=== PATIENT | male | born 1985 | race Caucasian/White ===

== ENCOUNTER → 2021-04-15 12:45 | Outpatient (BNVA) | payer OTHER, SELFPAY | PROVIDERS: Family Provider Family Medicine; PCP Family Medicine; Visit Provider Nurse Practitioner Family | DX: Z00.00 Encounter for general adult medical examination without abnormal findings (principal); R53.83 Other fatigue; K21.9 Gastro-esophageal reflux disease without esophagitis; R11.2 Nausea with vomiting, unspecified; F17.200 Nicotine dependence, unspecified, uncomplicated | CPT/HCPCS: 80053; 80061; 84443; 85025 ==

== ENCOUNTER 2022-12-15 17:07 | Emergency (ER) | payer OTHER, SELFPAY ==
[2022-12-15 17:22] VITALS: BP 139/99; PULSE 74; RESP 16; TEMP 36.3; O2SAT 95; BMI 37.2
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
--- NOTE | 2022-12-24 10:36 | DCPLANNER ---
sheet manager called patient due to no primary care physician - no answer at this time
== END 2022-12-15 19:58 | disposition home or self-care (01) ==
PROVIDERS: Emergency Provider Nurse Practitioner Family
DX: S29.012A Strain of muscle and tendon of back wall of thorax, initial encounter (principal); S16.1XXA Strain of muscle, fascia and tendon at neck level, initial encounter; V49.40XA Driver injured in collision with unspecified motor vehicles in traffic accident, initial encounter
CPT/HCPCS: 72040; 72072; 72100; 99283

== ENCOUNTER 2023-06-15 12:00 | Outpatient (CLI) | payer OTHER, SELFPAY | END 2023-06-15 12:01 | disposition home or self-care (01) | LOC: SLEEP 06-16 13:56 | PROVIDERS: Visit Provider Internal Medicine Pulmonary Disease | DX: G47.33 Obstructive sleep apnea (adult) (pediatric) (principal) | CPT/HCPCS: G0399 ==

== ENCOUNTER → 2023-06-16 11:34 | Outpatient (BNVA) | payer OTHER, SELFPAY | PROVIDERS: Visit Provider Student in an Organized Health Care Education/Training Program | DX: G56.03 Carpal tunnel syndrome, bilateral upper limbs | CPT/HCPCS: 73110 ==

== ENCOUNTER 2023-08-12 08:42 | Day surgery (SDC) | payer OTHER, SELFPAY ==
[2023-08-12] VITALS (7 sets, daily range): BP systolic 131–155; BP diastolic 91–117; PULSE 74–88; RESP 16–18; TEMP 36.1–36.2; O2SAT 95–97; BMI 37.2
[2023-08-12] MEDS: sodium chloride 0.9% 1,000 ML 30 ML IV (09:14)
[2023-08-12] MEDS: acetaminophen 1,000 MG/100 ML PIGGYBACK 400 MG IV (09:18)
[2023-08-12] MEDS: ketorolac 30 mg/mL INJ IVP (09:30)
--- NOTE | 2023-08-12 10:53 | ANES.PREANE2 ---
Pre-Anesthetic Assessment Height/Weight: Height 1.73 m Weight 111.13 kg Temp Pulse Resp BP Pulse Ox O2 Del Method 97.0 F L 74 18 145/117 97 Room Air 08/12/23 09:06 08/12/23 09:06 08/12/23 09:06 08/12/23 09:06 08/12/23 09:06 08/12/23 09:33 Operation Date: 08/12/23 10:20 Proposed Procedures p Right Carpal Tunnel Release(Right) - Gary Johnson, Familial anesthetic complications: None Was Beta Wen taken within 24 hours: N/A Was Clonidine taken within 24 hours: N/A Last intake: Intake Last Liquid Date 08/11/23 Last Liquid Time 22:00 Last Solid Date 08/11/23 Last Solid Time 21:00 Social No alcohol and No tobacco Exam alert, oriented x 3, clear to auscultation bilaterally and regular rate & rhythm Airway Mallampati: Class IV Dentition: chipped Pulmonary Sleep Apnea GI Gastroesophageal Reflux Disease Neuropsych Anxiety and Depression hyperreflexia (i.e. exagerated orienting response) Anesthetic Plan ASA status: 2 Anesthesia: MAC Risk of > 500 ml blood loss (7ml/kg in children): No Medications/Allergies Home Medications Medication Instructions Recorded Confirmed Last Taken Type clonazepam 1 mg tablet 1 mg PO TID 04/15/21 08/11/23 08/12/23 07:30 History melatonin 10 mg capsule 10 mg PO DAILY 04/15/21 08/11/23 08/11/23 History omeprazole 20 mg capsule,delayed 20 mg PO DAILY 04/15/21 08/11/23 08/12/23 07:30 History release desvenlafaxine succinate 25 mg 25 mg PO DAILY 04/29/23 08/11/23 08/12/23 07:30 History tablet,extended release 24 hr (Pristiq) Auto titrating CPAP with supplies #1 ea 06/25/23 07/14/23 Unknown Rx coenzyme Q10 100 mg capsule 100 mg PO DAILY 08/11/23 08/11/23 08/11/23 History (CoQ-10) magnesium 1 tab PO DAILY 08/11/23 08/11/23 08/11/23 History Allergies Allergy/AdvReac Type Severity Reaction Status Date / Time No Known Allergies Allergy Verified 08/12/23 09:02 Current Medications Generic Name Dose Route Start Last Admin Trade Name Freq PRN Reason Stop Dose Admin Sodium Chloride 1,000 mls @ 30 mls/hr 08/12/23 09:00 08/12/23 09:14 Sodium Chloride 0.9% IV 08/13/23 08:59 30 mls/hr .Q24H SAURABH Administration PFSH Anesthesia Medical History GERD (gastroesophageal reflux disease) Social History Smoking and tobacco/nicotine status: never used tobacco/nicotine Alcohol intake: never Substance/Drug Use: never Data Anesthesia Cardiac Studies: No Data to Display
--- NOTE | 2023-08-12 11:15 | W.PM.OPSUD ---
Surgery/Procedure H&P Update DATE OF PROCEDURE: August 12, 2023 DATE H&P PERFORMED: 07/14/23 H&P UPDATE INFORMATION: I have reviewed H&P completed within last 30 days, I have examined patient prior to procedure and No changes to prior documentation PREOP DIAGNOSIS: Right carpal tunnel syndrome PRIMARY INDICATION FOR PROCEDURE: Right carpal tunnel syndrome PLANNED PROCEDURE: Operation Date: 08/12/23 10:20 Proposed Procedures p Right Carpal Tunnel Release(Right) - Gary Johnson DO
[2023-08-12] MEDS: ceFAZolin 2,000 MG in sodium chloride 0.9% (plus) 50 ML 100 MG IV (12:13)
[2023-08-12] MEDS: lidocaine-epi 2% 20 mL INJ 5 ML INJECTION (12:40)
[2023-08-12] MEDS: ROPivacaine 0.5% SDV 30 mL 25 MG INJECTION (12:40)
--- NOTE | 2023-08-12 12:43 | PM.OP ---
Operative Report Date of procedure: August 12, 2023 Surgeon: Gary Johnson DO Chemical Engineering Technician: Milton Johnson PA-C: PA was necessary for assistance in this case with retraction and protection of neurovascular structures assistance with hand positioning during execution of the procedure as well as to assist with wound closure and dressing application. Procedure: Preoperative diagnosis: Right carpal tunnel syndrome: Post-op diagnosis: Same Procedure done: 1.?Right carpal tunnel?release Surgeon: Gary Johnson DO Anesthesia: MAC (Local) Estimated blood loss: 5 mL Tourniquet time 6 minutes IV fluids: See anesthesia?record Complications: None Findings: See operative?report narrative Condition: stable Disposition: same day Brief History: Patient is a pleasant 38 year-old male with?right carpal tunnel syndrome.? Patient has been worked up in the outpatient setting findings and physical examination consistent with this.? Patient nerve conduction studies consistent with carpal tunnel syndrome.? We detailed out patient's?risk benefits complication alternatives with surgical and nonsurgical treatment options. Through shared decision making, patient agrees to proceed with surgical intervention of the carpal tunnel?release .? Patient understands and agrees with current plan.? All questions answered.? Patient elects to proceed with surgical intervention with carpal tunnel?release. Procedure: Patient seen and evaluated in the preoperative holding area.? Consent was?reviewed and signed with patient.? Correct extremity was marked.? Patient was seen evaluated by the anesthesia department once cleared for surgery was brought back to the operative suite.? Patient was kept on [facility] in supine position all bony prominences were well-padded patient properly secured to the bed.??Right upper extremity was then placed onto an armboard.? A nonsterile tourniquet was applied to the?RIght upper arm.? Patient underwent anesthesia per the anesthesia department.? Patient's?Right upper extremity was then prepped and draped in standard orthopedic fashion.? Final timeout performed.? Patient?received appropriate preoperative antibiotics. Under sterile aseptic technique patient?received local anesthesia over the preplanned carpal tunnel incision site. Esmarch was used to exsanguinate the?Right upper extremity and tourniquet was insufflated to 250 mmHg. A standard mini open?Right carpal tunnel incision was made.? Starting distally at Etienne's cardinal line in line with the fourth?ray extending proximally distal to the wrist crease centered over the carpal tunnel.? Sharp scalpel incision was made through skin and subcutaneous tissue.? Self-retaining?retractor was placed and the palmar fascia was identified.? This was then split longitudinally and direct visualization of the transverse carpal ligament was then made.? I then utilizing scalpel feathered through the transverse carpal ligament until I entered the floor of the transverse carpal tunnel ligament into the carpal tunnel.? Next I switched to dissection scissors and completed my?release of the transverse carpal ligament distally with care to protect the?recurrent motor branch.? I completely?released into the palmar fat and until no entrapment was noted distally.? Care was made to protect the superficial palmar arch during my distal dissection.?? Next I utilized a nasal speculum placed on top of the transverse carpal ligament and utilize this to?retract the subcutaneous fat and tissue and under direct loupe magnification was able to identify the transverse carpal ligament.? Next I then placed a [place] underneath the transverse carpal tunnel ligament to protect the contents of the carpal tunnel and subsequently utilizing dissection scissors under loupe magnification completely?released the transverse carpal ligament proximally into the median antebrachial fascia.? Care was made to protect the palmar cutaneous branch by keeping my scissors curved ulnarly.? Once completely?released, I then placed my [place] and had appropriate decompression of the carpal tunnel proximally as well as distally.? I then inspected the contents of the carpal tunnel which showed an hourglass shape of the median nerve showing its compression.? No masses were noted.? Tendons appeared healthy.? Wound was then thoroughly irrigated.? Tourniquet deflated.? Hemostasis satisfactory with bipolar electrocautery.? I then closed the incision with interrupted nylon stitches.? Xeroform 4 x 4's and a bulky soft dressing was applied.? Patient was then awakened from anesthesia and taken to PACU in stable condition.? Patient tolerated procedure without complications. Disposition: Patient taken to PACU in stable condition?recovering well.? Dressing clean dry and intact.? Patient will?receive appropriate discharge instructions as well as pain medication postoperatively.? Patient to follow-up with me in the office in 2 weeks.? They understand they may be weightbearing as tolerated to the?right hand.? Patient should keep incision clean dry and intact.? Patient understands if any questions or concerns may contact the office.
--- NOTE | 2023-08-12 12:55 | P.BOP_ITS ---
Date of Procedure: [August 12, 2023] Surgeon: [Dr. Alex HOOK] Event Marketing Specialist(s): [Milton Johnson physician associate] Procedure(s) performed: [Right carpal tunnel release] Findings of the procedure(s): [Right carpal tunnel syndrome] Estimated blood loss: [5 ml] Specimen(s) removed: [N/A] Post-operative diagnosis: [Right carpal tunnel syndrome]
--- NOTE | 2023-08-12 12:56 | P.PCN_ITS ---
PACU note Narrative: Patient is a 38-year-old male that just underwent right carpal tunnel release. Patient transferred to PACU in stable condition. Pain is well controlled. Dressing on hand is dry and in place. Patient's fingers are warm and well- perfused. Patient can wiggle fingers. normal cap refill under 2 seconds. Patient has normal elbow range of motion. Unable to assess sensation due to residual localized anesthetic. Exam: awake Disposition: discharged
--- NOTE | 2023-08-12 14:13 | ANE.PACU2 ---
Inpatient post-anesthesia follow up: Airway intact: Yes Vital signs: Temperature 97.2 F Pulse Rate 84 Respiratory Rate 18 Blood Pressure 155/117 Pulse Oximetry 96 Oxygen Delivery Me thod Room Air Oxygen Flow Rate Fraction of Inspir ed Oxygen Hydration adequate: Yes Nausea and vomiting: No Pain level: 1 Mental status: Baseline
== END 2023-08-12 13:28 | disposition home or self-care (01) ==
PROVIDERS: PCP Family Medicine; Visit Provider Student in an Organized Health Care Education/Training Program
PROC: (CPT 64721; principal; 2023-08-12 10:10)
DX: G56.01 Carpal tunnel syndrome, right upper limb (principal); G47.30 Sleep apnea, unspecified; K21.9 Gastro-esophageal reflux disease without esophagitis
CPT/HCPCS: 64721; J0131; J0690; J1885; J2704; J2795; J3010; J7030

== ENCOUNTER 2023-08-26 09:07 | Day surgery (SDC) | payer OTHER, SELFPAY ==
[2023-08-26 09:23] VITALS: BP 147/113; PULSE 74; RESP 16; TEMP 36.1; O2SAT 95
[2023-08-26 09:24] VITALS: BMI 36.1
[2023-08-26] MEDS: acetaminophen 1,000 MG/100 ML PIGGYBACK 400 MG IV (09:39)
[2023-08-26] MEDS: sodium chloride 0.9% 1,000 ML 30 ML IV (09:42)
[2023-08-26] MEDS: ketorolac 30 mg/mL INJ IVP (09:42)
--- NOTE | 2023-08-26 10:16 | ANES.PAUD2 ---
Pre-Anesthetic Update Pre-Anesthetic Assessment: Date of Surgery/Procedure: 08/26/23 Proposed Procedure: Operation Date: 08/26/23 10:30 Proposed Procedures p Left Carpal Tunnel Release(Left) - Gary Johnson, DO Any changes to Pre-Anesthetic Assessment?: No Last Intake: Intake Last Liquid Date 08/25/23 Last Liquid Time 22:30 Last Solid Date 08/25/23 Last Solid Time 22:30 Vitals: Temperature 96.9 F L 08/26/23 09:23 Temperature Source Temporal Artery S can 08/26/23 09:23 Pulse Rate 74 08/26/23 09:23 Pulse Rhythm Regular 08/26/23 09:24 Respiratory Rate 16 08/26/23 09:23 Blood Pressure 147/113 08/26/23 09:23 Blood Pressure Yamilet n 124 08/26/23 09:23 Pulse Oximetry 95 08/26/23 09:23 Oxygen Delivery Me thod Room Air 08/26/23 09:24 Exam: Pre-Anes Outpt Exam: alert, oriented x 3, clear to auscultation bilaterally and regular rate & rhythm Cardiac Studies: No Data to Display
--- NOTE | 2023-08-26 10:28 | W.PM.OPSFHP ---
Same Day Surgery H&P Indication for Procedure/HPI DATE OF PROCEDURE: August 26, 2023 CHIEF COMPLAINT/INDICATIONFOR SURGICAL PROCEDURE: Left carpal tunnel syndrome PREOP DIAGNOSIS: Left carpal tunnel syndrome PLANNED PROCEDURE: Operation Date: 08/26/23 10:30 Proposed Procedures p Left Carpal Tunnel Release(Left) - Gary Johnson DO Medications/Allergies* Home Medications Medication Instructions Recorded Confirmed Type clonazepam 1 mg tablet 1 mg PO TID 04/15/21 08/25/23 History melatonin 10 mg capsule 10 mg PO DAILY 04/15/21 08/25/23 History omeprazole 20 mg capsule,delayed 20 mg PO DAILY 04/15/21 08/26/23 History release desvenlafaxine succinate 25 mg 25 mg PO DAILY 04/29/23 08/26/23 History tablet,extended release 24 hr (Pristiq) coenzyme Q10 100 mg capsule 100 mg PO DAILY 08/11/23 08/25/23 History (CoQ-10) magnesium 1 tab PO DAILY 08/11/23 08/11/23 History Allergies/Adverse Reactions Allergy/AdvReac Type Severity Reaction Status Date / Time No Known Allergies Allergy Verified 08/12/23 09:02 Current Medications: Generic Name Dose Route Start Last Admin Trade Name Freq PRN Reason Stop Dose Admin Sodium Chloride 1,000 mls @ 30 mls/hr 08/26/23 09:15 08/26/23 09:42 Sodium Chloride 0.9% IV 08/27/23 09:14 30 mls/hr .Q24H SAURABH Administration Pertinent History/Comorbid Conditions* Medical History (Updated 07/18/23 @ 14:53 by Gary Johnson DO) GERD (gastroesophageal reflux disease) Social History Smoking and tobacco/nicotine status: never used tobacco/nicotine Alcohol intake: never Substance/Drug Use: never Pertinent Exam Findings alert, oriented x 3, operative site marked and procedure specific exam findings Examination left upper extremity positive Tinel's positive median nerve compression test to the left wrist consistent with carpal tunnel syndrome Recommendations Surgery/Procedure today Other Plans: Plan to proceed to the OR today with left carpal tunnel release Coding Level of Care Code Acute Code for Dameon Szymanski
[2023-08-26] MEDS: ceFAZolin 2,000 MG in sodium chloride 0.9% (plus) 50 ML 100 MG IV (10:31)
[2023-08-26] MEDS: ROPivacaine 0.5% SDV 30 mL 25 MG INJECTION (11:01)
[2023-08-26] MEDS: lidocaine-epi 2% 20 mL INJ 5 ML INJECTION (11:01)
[2023-08-26 11:14] VITALS: BP 173/96; PULSE 96; RESP 16; TEMP 36.1; O2SAT 97
--- NOTE | 2023-08-26 11:15 | W.PM.BPON ---
Date of Procedure: [August 26, 2023] Surgeon: [Dr. Alex DO] Game Moderator(s): [Milton Johnson PA-C] Procedure(s) performed: [Right carpal tunnel release] Findings of the procedure(s): [Right carpal tunnel syndrome] Estimated blood loss: [5 ml] Specimen(s) removed: [N/A] Post-operative diagnosis: [Right carpal tunnel syndrome]
--- NOTE | 2023-08-26 11:16 | P.PCN_ITS ---
PACU note Narrative: Patient is a 38-year-old male just underwent Left carpal tunnel syndrome. Patient transferred to PACU in stable condition. Pain is well controlled. Dressing on hand is dry and in place. Patient's fingers are warm and well- perfused. Patient can wiggle fingers. normal cap refill under 2 seconds. Patient has normal elbow range of motion. Unable to assess sensation due to residual localized anesthetic. Exam: awake Disposition: discharged
--- NOTE | 2023-08-26 11:20 | P.OP_ITS ---
Operative Report Date of procedure: August 26, 2023 Surgeon: Gary Johnson DO Resident Care Director: Milton Johnson PA-C: PA was necessary for assistance in this case with hand positioning to execute the procedure, retraction and protection of neurovascular structures as well as to assist with wound closure and dressing application. Procedure: Preop Diagnosis: Left Carpal Tunnel Syndrome Post-op diagnosis: Same Procedure done: 1. Left carpal tunnel release Surgeon: Gary Johnson DO Anesthesia: MAC (Local) Estimated blood loss: [ 2]mL Tourniquet time [ 6]minutes IV fluids: See anesthesia record Complications: None Findings: See operative report narrative Condition: stable Disposition: same day Brief History: Patient is a pleasant [ 38 ]year-old [ M ] with left carpal tunnel syndrome. Patient has been worked up in the outpatient setting findings and physical examination consistent with this. Patient nerve conduction studies consistent with carpal tunnel syndrome. We detailed out patient's risk benefits complication alternatives with surgical and nonsurgical treatment options. Through shared decision making, patient agrees to proceed with surgical intervention of the left carpal tunnel release . Patient understands and agrees with current plan. All questions answered. Patient elects to proceed with surgical intervention with carpal tunnel release.Patient previously had a right carpal tunnel release and is doing well pertaining to this. We will remove his stitches while under anesthesia as this is over 2 weeks from his date of surgery. Procedure: Patient seen and evaluated in the preoperative holding area. Consent was reviewed and signed with patient. Correct extremity was marked. Patient was seen evaluated by the anesthesia department once cleared for surgery was brought back to the operative suite. Patient was kept on [facility] in supine position all bony prominences were well-padded patient properly secured to the bed. Left upper extremity was then placed onto an armboard. A nonsterile tourniquet was applied to the left upper arm. Patient underwent anesthesia per the anesthesia department. Patient's left upper extremity was then prepped and draped in standard orthopedic fashion. Final timeout performed. Patient received appropriate preoperative antibiotics. Under sterile aseptic technique patient received local anesthesia over the preplanned carpal tunnel incision site. Esmarch was used to exsanguinate the left upper extremity and tourniquet was insufflated to 250 mmHg. A standard mini open left carpal tunnel incision was made. Starting distally at Etienne's cardinal line in line with the fourth ray extending proximally distal to the wrist crease centered over the carpal tunnel. Sharp scalpel incision was made through skin and subcutaneous tissue. Self-retaining retractor was placed and the palmar fascia was identified. This was then split longitudinally and direct visualization of the transverse carpal ligament was then made. I then utilizing scalpel feathered through the transverse carpal ligament until I entered the floor of the transverse carpal tunnel ligament into the carpal tunnel. Next I switched to dissection scissors and completed my release of the transverse carpal ligament distally with care to protect the recurrent motor branch. I completely released into the palmar fat and until no entrapment was noted distally. Care was made to protect the superficial palmar arch during my distal dissection. Next, nasal speculum placed proximally for retraction of soft tissue on top of the Transverse carpal ligament. Next the contents of the carpal tunnel where protected and and subsequently utilizing dissection scissors under loupe magnification completely released the transverse carpal ligament proximally into the antebrachial fascia. Care was made to protect the palmar cutaneous branch by keeping my scissors curved ulnarly. Once completely released, I then placed my Pound and had appropriate decompression of the carpal tunnel proximally as well as distally. I then inspected the contents of the carpal tunnel which showed an hourglass shape of the median nerve showing its compression. No masses were noted. Tendons appeared healthy. Wound was then thoroughly irrigated. Tourniquet deflated. Hemostasis satisfactory with bipolar electrocautery. I then closed the incision with interrupted nylon stitches. Xeroform 4 x 4's and a bulky soft dressing was applied to the left upper extremity. Prior to being awakened from anesthesia we did evaluate his right carpal tunnel release incisions well-healed no signs of infection stitches removed atraumatically and under sterile aseptic technique Steri-Strips applied and OpSite bandage placed. Patient was then awakened from anesthesia and taken to PACU in stable condition. Patient tolerated procedure without complications. Disposition: Patient taken to PACU in stable condition recovering well. Dressing clean dry and intact. Patient will receive appropriate discharge instructions as well as pain medication postoperatively. Patient to follow-up with me in the office in 2 weeks. They understand they may be weightbearing as tolerated to the left hand. Patient should keep incision clean dry and intact. Patient understands if any questions or concerns may contact the office.
[2023-08-26 11:21] VITALS: BP 205/95; PULSE 85; RESP 16; O2SAT 96
[2023-08-26 11:36] VITALS: BP 154/99; PULSE 84; RESP 18; TEMP 36.1; O2SAT 97
[2023-08-26 12:05] VITALS: BP 179/96; PULSE 82; RESP 18; TEMP 36.1; O2SAT 98
--- NOTE | 2023-08-26 12:15 | ANE.PACU2 ---
Inpatient post-anesthesia follow up: Airway intact: Yes Vital signs: Temperature 97 F Pulse Rate 82 Respiratory Rate 18 Blood Pressure 179/96 Pulse Oximetry 98 Oxygen Delivery Me thod Room Air Oxygen Flow Rate Fraction of Inspir ed Oxygen Hydration adequate: Yes Nausea and vomiting: No Pain level: 1 Mental status: Baseline
== END 2023-08-26 12:15 | disposition home or self-care (01) ==
PROVIDERS: PCP Family Medicine; Visit Provider Student in an Organized Health Care Education/Training Program
PROC: (CPT 64721; principal; 2023-08-26 10:20)
DX: G56.02 Carpal tunnel syndrome, left upper limb (principal)
CPT/HCPCS: 64721; J0131; J0690; J1885; J2250; J2704; J2795; J3010; J7030

== ENCOUNTER → 2024-02-18 10:20 | Outpatient (BNVA) | payer OTHER, SELFPAY | PROVIDERS: PCP Family Medicine; Visit Provider Physician Assistant | DX: M65.331 Trigger finger, right middle finger; M65.351 Trigger finger, right little finger | CPT/HCPCS: 73130 ==

== ENCOUNTER → 2024-09-27 11:39 | Outpatient (BNVA) | payer SELFPAY | PROVIDERS: PCP Family Medicine; Visit Provider Family Medicine | DX: I10 Essential (primary) hypertension (principal) | CPT/HCPCS: 80048; 82043 ==

== ENCOUNTER → 2024-10-19 15:21 | Outpatient (BNVA) | payer OTHER, SELFPAY | PROVIDERS: PCP Family Medicine; Visit Provider Student in an Organized Health Care Education/Training Program | DX: M65.351 Trigger finger, right little finger (principal); M65.331 Trigger finger, right middle finger; M65.332 Trigger finger, left middle finger; M65.342 Trigger finger, left ring finger | CPT/HCPCS: 73130 ==

== ENCOUNTER 2024-11-14 08:56 | Day surgery (SDC) | payer OTHER, SELFPAY ==
[2024-11-14] VITALS (13 sets, daily range): BP systolic 121–164; BP diastolic 82–106; PULSE 60–78; RESP 12–20; TEMP 36.1–36.6; O2SAT 93–97; BMI 38.4
[2024-11-14] MEDS: sodium chloride 0.9% 1,000 ML 30 ML IV (09:33)
[2024-11-14] MEDS: scopolamine 1 mg PATCH 1 PATCH TRANSDERMA (09:33)
[2024-11-14] MEDS: acetaminophen 1,000 MG/100 ML PIGGYBACK 400 MG IV (09:33)
[2024-11-14] MEDS: ketorolac 30 mg/mL INJ IVP (09:33)
--- NOTE | 2024-11-14 09:38 | ANES.PREANE2 ---
Pre-Anesthetic Assessment Height/Weight: Height 5 ft 9 in Weight 260 lb Temp Pulse Resp BP Pulse Ox O2 Del Method 97.6 F 68 18 121/82 95 Room Air 11/14/24 09:14 11/14/24 09:14 11/14/24 09:14 11/14/24 09:14 11/14/24 09:14 11/14/24 09:14 Preop Diagnosis: Trigger finger Operation Date: 11/14/24 10:45 Proposed Procedures p Left middle finger trigger release and Left ring finger trigger release(Left) - Gary Alex, DO Was Beta Wen taken within 24 hours: N/A Was Clonidine taken within 24 hours: N/A Last intake: Intake Last Liquid Date 11/13/24 Last Liquid Time 21:00 Last Solid Date 11/13/24 Last Solid Time 21:00 Social No alcohol and No tobacco Exam alert, oriented x 3, clear to auscultation bilaterally and regular rate & rhythm Airway Submandibular: within normal limits Cervical ROM: within normal limits Mallampati: Class II Dentition: full Anesthetic Plan ASA status: 3 Anesthesia: MAC Other: No prior issues with anesthesia NPO since yesterday evening History of hypertension on losartan and chlorthalidone GERD on omeprazole YAS wears CPAP Labs reviewed and acceptable for procedure METs greater than 4 Plan for MAC anesthesia with local via surgeon Medications/Allergies Home Medications ?Medication ?Instructions ?Recorded ?Confirmed ?Last Taken ?Type melatonin 10 mg capsule 10 mg PO DAILY 04/15/21 11/11/24 11/13/24 History omeprazole 20 mg capsule,delayed 20 mg PO DAILY 04/15/21 11/11/24 11/13/24 History release Auto titrating CPAP with supplies #1 ea 06/25/23 10/19/24 Unknown Rx clonazepam 1 mg tablet 1 mg PO BID 10/04/23 11/11/24 11/13/24 History desvenlafaxine succinate 100 mg 100 mg PO DAILY 10/04/23 11/11/24 11/13/24 History tablet,extended release 24 hr (Pristiq) chlorthalidone 25 mg tablet 25 mg PO DAILY 10/19/24 11/11/24 11/13/24 History losartan 50 mg tablet 50 mg PO DAILY 10/19/24 11/11/24 11/13/24 History potassium chloride 20 mEq 20 meq PO BID 0311/14/24 11/13/24 History tablet,extended release(part/cryst) Allergies Allergy/AdvReac Type Severity Reaction Status Date / Time No Known Allergies Allergy Verified 11/11/24 11:57 Current Medications Generic Name Dose Route Start Last Admin Trade Name Jewelq PRN Reason Stop Dose Admin Sodium Chloride 1,000 mls @ 30 mls/hr 11/14/24 09:15 11/14/24 09:33 Sodium Chloride 0.9% IV 11/15/24 09:14 30 mls/hr .Q24H SAURABH Administration PFSH Anesthesia Medical History GERD (gastroesophageal reflux disease) Social History Smoking and tobacco/nicotine status: never used tobacco/nicotine Alcohol intake: never Substance/Drug Use: never Data Anesthesia Cardiac Studies: No Data to Display
--- NOTE | 2024-11-14 10:32 | W.PM.OPSUD ---
Surgery/Procedure H&P Update DATE OF PROCEDURE: November 14, 2024 DATE H&P PERFORMED: 10/19/24 H&P UPDATE INFORMATION: I have reviewed H&P completed within last 30 days, I have examined patient prior to procedure and No changes to prior documentation PREOP DIAGNOSIS: Left middle finger trigger, left ring finger trigger PRIMARY INDICATION FOR PROCEDURE: Left middle finger trigger, left ring finger trigger PLANNED PROCEDURE: Operation Date: 11/14/24 10:45 Proposed Procedures p Left middle finger trigger release and Left ring finger trigger release(Left) - Gary Johnson DO
[2024-11-14] MEDS: ceFAZolin 2,000 MG in sodium chloride 0.9% (plus) 50 ML 100 MG IV (11:00)
[2024-11-14] MEDS: lidocaine 1% 10 ML INJ 5 ML XX (11:24)
[2024-11-14] MEDS: ROPivacaine 0.5% SDV 30 mL 25 MG INJECTION (11:26)
--- NOTE | 2024-11-14 11:59 | W.PM.BPON ---
Date of Procedure: 11/14/2024 Surgeon: Gary Johnson DO Supervisor Drapery Hanging(s): None Procedure(s) performed: Left middle finger trigger release Left ring finger trigger release Findings of the procedure(s): Patient underwent procedure as planned without issues or complications Estimated blood loss: 5 mL Specimen(s) removed: None Post-operative diagnosis: Left middle and ring finger triggers
--- NOTE | 2024-11-14 12:01 | PM.OP ---
Operative Report Date of procedure: November 14, 2024 Surgeon: Gary Johnson DO Anesthesia: General Procedure: Preoperative diagnosis: Left middle finger trigger Left ring finger trigger Post-op diagnosis: Same Procedure done: Left middle finger trigger release Left ring finger trigger release Surgeon: Gary Johnson DO Estimated blood loss: 5cc Tourniquet time 14mins Complications: None Condition: stable Disposition: same day Brief History: Patient's been seen and worked up in the outpatient setting and findings consistent with preoperative diagnosis of Left middle and ring finger?trigger.? He is failed conservative treatment.? Continues to have mechanical locking and catching.? Severe pain as well and decreased ROM.? We talked about treatment options nonoperative versus operative intervention.? ?Patient understands the risk benefits complication alternatives of surgical nonsurgical treatment options.? Understanding his risks with surgery he elects proceed with surgical intervention.? Consent obtained in the office.? Here today to proceed with surgical intervention.? All questions answered. Procedure: Patient was seen and evaluated in the preoperative holding area.? Consent was reviewed and signed with patient.? Seen evaluated by Anesthesia Department.? Once cleared for surgery was brought back to the operative suite.? Placed in supine position on the OR table all bony prominences well-padded patient properly secured to the bed.? Patient's Left arm was then placed to the armboard.? A nonsterile tourniquet applied to the Left upper arm.? Patient's Left upper extremity was then prepped and draped in standard orthopedic fashion.? Final timeout performed.? Patient received appropriate preoperative antibiotics. Esmarch tourniquet was used exsanguinate the Left upper extremity tourniquet insufflated to 250 mmHg. Under sterile aseptic technique local digital block was performed to the Left middle and ring fingers.? Once appropriately anesthetized a standard oblique incision was made along the flexor crease able to work through 1 incision to achieve both the left middle and ring finger trigger releases. I started off with a left middle finger. Sharp scalpel incision was made only through skin and then switched to Littler dissection scissors and spread longitudinally directly over the flexor tendon sheath.? I then mobilized both radially and ulnarly and Kasdan retractors were used and placed by my business banking sales assistant to protect neurovascular bundle.? Next I visualized the A1 brett and this was incised with a scalpel.? I then switched to dissection scissors and released the A1 brett both proximally as well as distally to its entirety.? Significant tendon sheath fluid was noted consistent with inflammation.? Mild fraying of the flexor tendons noted but no tear.? At this point I utilized a rag nail and pulled the tendons FDS and FDP out of the incision. After A1 was released it was clearly evident patient still had a triggering component as a result I had a release to roughly 20% of A2 and after this was performed patient no longer had any triggering. Once again utilized a rag nail as well as taken the finger through range of motion and no longer any triggering was noted of the left middle finger. This completed the left middle finger trigger release I then subsequently proceeded to the left ring finger trigger release. I worked through the previous incision that included both the ring and middle trigger releases. I used Littler dissection scissors and spread longitudinally directly over the flexor tendon sheath.? I then mobilized both radially and ulnarly and Kasdan retractors were used and placed by my business banking sales assistant to protect neurovascular bundle.? Next I visualized the A1 brett and this was incised with a scalpel.? I then switched to dissection scissors and released the A1 brett both proximally as well as distally to its entirety.? Significant tendon sheath fluid was noted consistent with inflammation.? Mild fraying of the flexor tendons noted but no tear.? At this point I utilized a rag nail and pulled the tendons FDS and FDP out of the incision and no?triggering was noted.? Tourniquet deflated, hemostasis satisfactory with bipolar.? Thorough irrigation performed. I then subsequently closed the incision with interrupted nylon suture.? Xeroform 4 x 4's, Kerlix and an Raul wrap was applied for a bulky soft dressing.? Patient was then subsequently awakened from anesthesia and taken to PACU in stable condition tolerated procedure without issues. Disposition: Patient taken back in stable condition recovering well.? Patient will receive appropriate discharge instruction as well as pain medication postoperatively.? Patient to follow-up with me in the office in 2 weeks for repeat evaluation and incision check.? Patient understands that any questions or concerns and contact the office.? All questions answered.
--- NOTE | 2024-11-14 12:55 | ANE.PACU2 ---
Inpatient post-anesthesia follow up: Airway intact: Yes Vital signs: Temperature 97.0 F Pulse Rate 71 Respiratory Rate 16 Blood Pressure 162/92 Pulse Oximetry 95 Oxygen Delivery Me thod Room Air Oxygen Flow Rate 8 Fraction of Inspir ed Oxygen Hydration adequate: Yes Nausea and vomiting: No Pain level: 1 Mental status: Baseline
== END 2024-11-14 12:55 | disposition home or self-care (01) ==
PROVIDERS: PCP Family Medicine; Visit Provider Student in an Organized Health Care Education/Training Program
PROC: (CPT 26055; principal; 2024-11-14 10:35)
DX: M65.332 Trigger finger, left middle finger (principal); M65.342 Trigger finger, left ring finger; I10 Essential (primary) hypertension; Z79.899 Other long term (current) drug therapy; G47.33 Obstructive sleep apnea (adult) (pediatric)
CPT/HCPCS: 26055 ×2; J0131; J0690; J1100; J1885; J2250; J2405; J2795; J3010; J7030

== ENCOUNTER 2024-11-24 06:00 | Outpatient (RCR) | payer OTHER, SELFPAY | END 2024-12-12 23:59 | disposition home or self-care (01) | LOC: MPT 06:00 | PROVIDERS: PCP Family Medicine; Visit Provider Student in an Organized Health Care Education/Training Program | DX: Z98.890 Other specified postprocedural states (principal) | CPT/HCPCS: 97110; 97161 ==

== ENCOUNTER 2024-12-13 06:00 | Outpatient (RCR) | payer OTHER, SELFPAY | END 2025-01-11 23:59 | disposition home or self-care (01) | LOC: MPT 06:00 | PROVIDERS: PCP Family Medicine; Visit Provider Student in an Organized Health Care Education/Training Program | DX: Z98.890 Other specified postprocedural states (principal) | CPT/HCPCS: 97110; 97140 ==

== ENCOUNTER → 2024-12-21 11:15 | Outpatient (BNVA) | payer OTHER, SELFPAY | PROVIDERS: PCP Family Medicine; Visit Provider Family Medicine | DX: E87.5 Hyperkalemia (principal) | CPT/HCPCS: 80048 ==

== ENCOUNTER 2025-02-12 06:30 | Outpatient (RCR) | payer OTHER, SELFPAY | END 2025-03-13 23:59 | disposition home or self-care (01) | LOC: MPT 06:30 | PROVIDERS: PCP Family Medicine; Visit Provider Student in an Organized Health Care Education/Training Program | DX: Z47.89 Encounter for other orthopedic aftercare (principal) | CPT/HCPCS: 97110; 97140 ==

== ENCOUNTER → 2025-04-18 13:14 | Outpatient (BNVA) | payer OTHER, SELFPAY | PROVIDERS: PCP Family Medicine; Referring Provider Family Medicine; Visit Provider Family Medicine | DX: R73.03 Prediabetes (principal); E87.6 Hypokalemia | CPT/HCPCS: 80048; 83036 ==

== ENCOUNTER 2025-08-18 09:03 | Day surgery (SDC) | payer OTHER, SELFPAY ==
[2025-08-18 09:15] VITALS: BP 146/76; PULSE 55; RESP 18; TEMP 36.7; O2SAT 97; BMI 36.9
[2025-08-18] MEDS: acetaminophen 1,000 MG/100 ML PIGGYBACK 400 MG IV (09:23)
--- NOTE | 2025-08-18 09:54 | ANES.PREANE2 ---
Pre-Anesthetic Assessment Height/Weight: Height 5 ft 9 in Weight 250 lb Temp Pulse Resp BP Pulse Ox O2 Del Method 98.1 F 55 L 18 146/76 97 Room Air 08/18/25 09:15 08/18/25 09:15 08/18/25 09:15 08/18/25 09:15 08/18/25 09:15 08/18/25 09:15 Preop Diagnosis: Trigger finger Operation Date: 08/18/25 10:35 Proposed Procedures p RIGHT Ring Finger Trigger Finger Release(Right) - Gary [place], DO Was Beta Wen taken within 24 hours: N/A Was Clonidine taken within 24 hours: N/A Last intake: Intake Last Liquid Date 08/17/25 Last Liquid Time 21:00 Last Solid Date 08/17/25 Last Solid Time 21:00 Social No alcohol and No tobacco Exam alert, oriented x 3, clear to auscultation bilaterally and regular rate & rhythm Airway Submandibular: within normal limits Cervical ROM: within normal limits Mallampati: Class III Dentition: full Comments: Comments: Cervantes Anesthetic Plan ASA status: 3 Anesthesia: MAC Other: No prior issues with anesthesia NPO since yesterday evening History of hypertension on losartan and amlodipine. Preop BP 146/76 History of GERD on omeprazole YAS on CPAP BMI 36.9 Labs reviewed from April METs greater than 4 Plan for MAC anesthesia with local via surgeon Medications/Allergies Home Medications ?Medication ?Instructions ?Recorded ?Confirmed ?Last Taken ?Type melatonin 10 mg capsule 10 mg PO DAILY 04/15/21 08/17/25 08/17/25 History omeprazole 20 mg capsule,delayed 20 mg PO DAILY 04/15/21 08/17/25 08/17/25 History release Auto titrating CPAP with supplies #1 ea 06/25/23 06/21/25 Unknown Rx clonazepam 1 mg tablet 1 mg PO BID 10/04/23 08/17/25 08/17/25 History desvenlafaxine succinate 100 mg 100 mg PO DAILY 10/04/23 08/17/25 08/17/25 History tablet,extended release 24 hr (Pristiq) losartan 50 mg tablet 100 mg PO DAILY 11/30/24 08/17/25 08/17/25 History amlodipine 5 mg tablet 5 mg PO DAILY 08/18/25 08/18/25 08/17/25 History Allergies Allergy/AdvReac Type Severity Reaction Status Date / Time No Known Allergies Allergy Verified 08/18/25 09:11 Current Medications Generic Name Dose Route Start Last Admin Trade Name Freq PRN Reason Stop Dose Admin Sodium Chloride 1,000 mls @ 30 mls/hr 08/18/25 09:15 08/18/25 09:23 Sodium Chloride 0.9% IV 08/19/25 09:14 30 mls/hr .Q24H SAURABH Administration PFSH Anesthesia Medical History GERD (gastroesophageal reflux disease) Social History Smoking and tobacco/nicotine status: never used tobacco/nicotine Alcohol intake: never Substance/Drug Use: never
--- NOTE | 2025-08-18 10:13 | W.PM.OPSFHP ---
Same Day Surgery H&P Indication for Procedure/HPI DATE OF PROCEDURE: August 18, 2025 CHIEF COMPLAINT/INDICATIONFOR SURGICAL PROCEDURE: Right middle finger trigger PREOP DIAGNOSIS: Right middle finger trigger PLANNED PROCEDURE: Operation Date: 08/18/25 10:35 Proposed Procedures p RIGHT Ring Finger Trigger Finger Release(Right) - Gary Johnson DO Medications/Allergies* Home Medications ?Medication ?Instructions ?Recorded ?Confirmed ?Type melatonin 10 mg capsule 10 mg PO DAILY 04/15/21 08/17/25 History omeprazole 20 mg capsule,delayed 20 mg PO DAILY 04/15/21 08/17/25 History release clonazepam 1 mg tablet 1 mg PO BID 10/04/23 08/17/25 History desvenlafaxine succinate 100 mg 100 mg PO DAILY 10/04/23 08/17/25 History tablet,extended release 24 hr (Pristiq) losartan 50 mg tablet 100 mg PO DAILY 11/30/24 08/17/25 History amlodipine 5 mg tablet 5 mg PO DAILY 08/18/25 08/18/25 History Allergies/Adverse Reactions Allergy/AdvReac Type Severity Reaction Status Date / Time No Known Allergies Allergy Verified 08/18/25 09:11 Current Medications: Generic Name Dose Route Start Last Admin Trade Name Freq PRN Reason Stop Dose Admin Sodium Chloride 1,000 mls @ 30 mls/hr 08/18/25 09:15 08/18/25 09:23 Sodium Chloride 0.9% IV 08/19/25 09:14 30 mls/hr .Q24H SAURABH Administration Pertinent History/Comorbid Conditions* Medical History (Updated 10/26/24 @ 22:32 by Gary Johnson DO) GERD (gastroesophageal reflux disease) Social History Smoking and tobacco/nicotine status: never used tobacco/nicotine Alcohol intake: never Substance/Drug Use: never Pertinent Exam Findings alert, oriented x 3, operative site marked and procedure specific exam findings Please refer to preoperative anesthesia evaluation for heart and lung findings Refer to detailed orthopedic examination on 06/21/2025 listed below: RIght Trigger Finger Exam: -Negative Tinel's at wrist -Negative median nerve compression test -Good thenar strength, no appreciable atrophy -Good intrinsic strength, no atrophy noted -Slight decreased ROM of RMF compared to the other digits unable to fully extend -When making a fist decreased ROM of right middle finger -TTP over A1 brett of right middle finger with mechanical triggering and catching noted -No TTP over remaining digit A1 brett's -subtle trigger ring and small finger but no pain noted -Negative CMC grind test -No TTP over CMC joint Recommendations Risks and benefits of procedure reviewed and Patient/family agree to proceed Surgery/Procedure today Other Plans: Plan to proceed to the OR today for right middle finger trigger release. Patient understands the ins and outs procedure the risk benefits complication alternative surgical nonsurgical treatment options. Understanding risk of surgery patient like to proceed with surgical invention. All questions answered at this time. Coding Level of Care Code Acute Code for Chg Fwd
[2025-08-18] MEDS: ROPivacaine 0.5% SDV 30 mL 25 MG INJECTION (11:00)
[2025-08-18] MEDS: ceFAZolin 2,000 MG in sodium chloride 0.9% (plus) 50 ML 100 MG IV (11:02)
[2025-08-18 11:35] VITALS: BP 117/88; PULSE 79; RESP 18; TEMP 36.1; O2SAT 95
[2025-08-18 11:40] VITALS: BP 126/92; PULSE 78; RESP 16; O2SAT 95
--- NOTE | 2025-08-18 11:41 | W.PM.BPON ---
Date of Procedure: 08/18/25 Surgeon: Gary Johnson DO Sales Representative Electric Service(s): None Procedure(s) performed: Right middle finger trigger release Findings of the procedure(s): Underwent procedure as planned without issues or complications taken recovery in stable condition Estimated blood loss: 3 mL Specimen(s) removed: None Post-operative diagnosis: Right middle finger trigger
--- NOTE | 2025-08-18 11:42 | P.OP_ITS ---
Operative Report Date of procedure: August 18, 2025 Surgeon: Gary Johnson DO Procedure: Preoperative diagnosis: Right middle finger trigger Post-op diagnosis: Same Procedure done: Right?middle?finger?trigger?release Surgeon: Gary Johnson DO Estimated blood loss: 3cc Tourniquet time 7mins Complications: None Condition: stable Disposition: same day Brief History: Patient's been seen and worked up in the outpatient setting and findings consistent with preoperative diagnosis of right?middle?finger?trigger.? He is failed conservative treatment.? Continues to have mechanical locking and catching.? Severe pain as well.? We talked about treatment options nonoperative versus operative intervention.? ?Patient understands the risk benefits complication alternatives of surgical nonsurgical treatment options.? Understanding his risks with surgery he elects proceed with surgical intervention.? Consent obtained in the preoperative holding area.? Here today to proceed with surgical intervention for right middle finger trigger release.? All questions answered. Procedure: Patient was seen and evaluated in the preoperative holding area.? Consent was reviewed and signed with patient.? Seen evaluated by Anesthesia Department.? Once cleared for surgery was brought back to the operative suite.? Placed in supine position on the OR table all bony prominences well-padded patient properly secured to the bed.? Patient's right arm was then placed to the armboard.? A nonsterile tourniquet applied to the right upper arm.? Patient's right upper extremity was then prepped and draped in standard orthopedic fashion.? Final timeout performed.? Patient received appropriate preoperative antibiotics. Esmarch tourniquet was used exsanguinate the right upper extremity tourniquet insufflated to 250 mmHg. Under sterile aseptic technique local digital block was performed to the right?middle?finger.? Once appropriately anesthetized a standard oblique incision was made centering over the A1 brett following patient's flexor crease.? Sharp scalpel incision was made only through skin and then switched to Littler dissection scissors and spread longitudinally directly over the flexor tendon sheath.? I then mobilized both radially and ulnarly and Kasdan retractors were used and placed by my biology laboratory assistant to protect neurovascular bundle.? Next I visualized the A1 brett and this was incised with a scalpel.? I then switched t o dissection scissors and released the A1 brett both proximally as well as distally to its entirety.? Significant tendon sheath fluid was noted consistent with inflammation.? Mild fraying of the flexor tendons noted but no tear.? At this point I utilized a rag nail and pulled the tendons FDS and FDP out of the incision and no?triggering was noted.? I then had anesthesia wake up the patient and patient was able to actively flex and extend with no?triggering.? This point thorough irrigation was performed.? Tourniquet deflated hemostasis satisfactory with bipolar.? I then subsequently closed the incision with interrupted nylon suture.? Xeroform 4 x 4's, Kerlix and an Raul wrap was applied for a bulky soft dressing.? Patient was then subsequently awakened from anesthesia and taken to PACU in stable condition tolerated procedure without issues. Disposition: Patient taken back in stable condition recovering well.? Patient will receive appropriate discharge instruction as well as pain medication postoperatively.? Patient to follow-up with me in the office in 2 weeks for repeat evaluation and incision check.? Patient understands that any questions or concerns and contact the office.? All questions answered.
[2025-08-18 11:45] VITALS: BP 132/79; PULSE 75; RESP 16; TEMP 36.3; O2SAT 95
[2025-08-18 11:49] VITALS: BP 117/79; PULSE 72; RESP 18; TEMP 36.7; O2SAT 94
[2025-08-18] MEDS: HYDROcodone-acetaminophen 5-325 mg Tablet 1 TAB PO (12:08)
[2025-08-18 12:14] VITALS: BP 118/76; PULSE 67; RESP 16; O2SAT 95
--- NOTE | 2025-08-18 12:27 | ANE.PACU2 ---
Inpatient post-anesthesia follow up: Airway intact: Yes Vital signs: Temperature 98.1 F Pulse Rate 67 Respiratory Rate 16 Blood Pressure 118/76 Pulse Oximetry 95 Oxygen Delivery Me thod Room Air Oxygen Flow Rate Fraction of Inspir ed Oxygen Hydration adequate: Yes Nausea and vomiting: No Pain level: 1 Mental status: Baseline
== END 2025-08-18 12:27 | disposition home or self-care (01) ==
PROVIDERS: PCP Family Medicine; Visit Provider Student in an Organized Health Care Education/Training Program
PROC: (CPT 26055; principal; 2025-08-18 10:25)
DX: M65.331 Trigger finger, right middle finger (principal); K21.9 Gastro-esophageal reflux disease without esophagitis; I10 Essential (primary) hypertension; G47.33 Obstructive sleep apnea (adult) (pediatric); Z99.89 Dependence on other enabling machines and devices
CPT/HCPCS: 26055; J0131; J0690; J1885; J2250; J2704; J2795; J3010; J7030; J9999

== ENCOUNTER 2025-08-21 19:57 | Outpatient (CLI) | payer OTHER, SELFPAY | END 2025-08-21 19:58 | disposition home or self-care (01) | LOC: SLEEP 19:59 | PROVIDERS: PCP Family Medicine; Referring Provider Family Medicine; Visit Provider Internal Medicine Pulmonary Disease | DX: G47.33 Obstructive sleep apnea (adult) (pediatric) (principal) | CPT/HCPCS: 95811 ==